=== PATIENT | male | born 1970 | race Two or more races ===

== ENCOUNTER 2021-11-03 13:10 | Emergency (ER) | payer OTHER ==
[~2021-11-03] VITALS: Ht 175.3 cm; Wt 134.3 kg
[2021-11-03] MEDS ORDERED: KETOROLAC TROMETH 60MG/2ML VIAL IM ONE (14:30)
[2021-11-03 15:23] VITALS: BP 130/88
== END 2021-11-03 15:27 | disposition home or self-care (01) ==
LOC: ER 13:10
DX: S73.101A Unspecified sprain of right hip, initial encounter (principal); M79.10 Myalgia, unspecified site; V48.3XXA Unspecified car occupant injured in noncollision transport accident in nontraffic accident, initial encounter; Y93.89 Activity, other specified; Y92.89 Other specified places as the place of occurrence of the external cause; Y99.8 Other external cause status
CPT/HCPCS: 72192; 96372; 99284; J1885

== ENCOUNTER 2022-03-31 10:46 | Emergency (ER) | payer MEDICAID, OTHER ==
[~2022-03-31] VITALS: Ht 170.2 cm; Wt 135.0 kg
[2022-03-31 11:48] VITALS: BP 149/93
[2022-03-31] MEDS ORDERED: KETOROLAC TROMETH 60MG/2ML VIAL IM ONE (12:30)
[2022-03-31] MEDS ORDERED: IBUP800T27 PO (12:49)
== END 2022-03-31 12:56 | disposition home or self-care (01) ==
LOC: ER 10:46
DX: M47.22 Other spondylosis with radiculopathy, cervical region (principal)
CPT/HCPCS: 72040; 93005; 96372; 99283; J1885